=== PATIENT | male | born 1945 | race Hispanic/Latino ===

== ENCOUNTER 2017-05-10 06:05 | Day surgery (SDC) | payer MEDICARE, OTHER ==
--- NOTE | 2017-05-10 07:36 | Anesthesia Consultation ---
Anesthesia Consult and Med Hx Date of service: 05/10/17 - Airway Anesthetic Teeth Evaluation: Good ROM Head & Neck: Adequate Mental/Hyoid Distance: Adequate Mallampati Class: Class III Intubation Access Assessment: Possibly Difficult - Pre-Operative Health Status ASA Pre-Surgery Classification: ASA3 Proposed Anesthetic Plan: MAC - Pulmonary Hx Sleep Apnea: Yes - Cardiovascular System Hx Hypertension: Yes Hx Coronary Artery Disease: Yes (CABG x 3 2007, high cholestrerol) Hx Angina: No (h/o CHF) - Central Nervous System Hx Back Pain: Yes Hx Psychiatric Problems: Yes (depression) - Other Systems Hx Obesity: Yes (BMI 45.3, pre-bariatric surgery evaluation)
--- NOTE | 2017-05-10 07:37 | Anesthesia Day of Surgery ---
Anesthesia Day of Surgery - Day of Surgery Patient Examined: Yes Patient H&P Reviewed: Yes Patient is NPO: Yes Beta Blockers: Yes Cardiac Clearance: Yes
[2017-05-10] MEDS ORDERED: NACL 0.9% 1000 ML 1,000 ML IV SCH (08:00)
[2017-05-10] MEDS ORDERED: DIPRIVAN 10 MG/ML IV ONE (08:22)
[2017-05-10] MEDS ORDERED: WATER FOR IRRIG STERILE IR ONE (08:27)
--- NOTE | 2017-05-10 09:15 | Post Anesthesia Evaluation ---
- Post Anesthesia Evaluation Patient Participated: Yes Airway Patent: Yes Stable Respiratory Function: Yes Nausea/Vomiting: No Temp > 96.8F: Yes Pain Manageable: Yes Adequeate Hydration: Yes Anesthesia Complications: No
[2017-05-10 10:09] VITALS: BP 105/59
--- NOTE | 2017-05-11 01:18 | Operative Report ---
PREOPERATIVE DIAGNOSES: 1. Gastroesophageal reflux disease, dyspepsia, epigastric pain. 2. History of previously diagnosed hiatal hernia. POSTOPERATIVE DIAGNOSES: 1. Type 3 hiatal hernia. 2. Mild esophagitis 3. Gastroesophageal reflux disease. PROCEDURE IN DETAIL: The patient was placed in the dorsal supine position ____ satisfactory induction of MAC anesthesia, the patient was then placed in the left lateral decubitus position in preparation for undergoing the endoscopic esophagogastroendoscopy. Prior to induction, the patient's bite block was placed ____ the scope and then after adequate sedation, the scope was then passed down through the posterior oropharynx into the upper esophagus, mid esophagus and lower esophagus. Upon identifying the lower esophagus, the patient was noted to have a mild amount of esophagitis. The scope was then passed into the stomach. No abnormalities were seen on the way by antegrade to perform the mid body of the stomach and down to the antrum and into the pylorus. Scope was then retroflexed and upon retroflexion it was immediately noted that the patient had a large type 3 hiatal hernia. No other defects noted. The distal esophagus was within normal limits. Other than that ____ mild esophagitis. There was no evidence of any severe reflux disease. At the procedure was terminated, the endoscope was removed and the patient taken to recovery room in stable condition. JOB# [id number] RACHELLE/WHIT
== END 2017-05-10 06:06 | disposition home or self-care (01) ==
LOC: GIO 06:05
PROVIDERS: ATTEND Specialist
DX: K21.0 Gastro-esophageal reflux disease with esophagitis (principal); K44.9 Diaphragmatic hernia without obstruction or gangrene; F32.9 Major depressive disorder, single episode, unspecified; I25.10 Atherosclerotic heart disease of native coronary artery without angina pectoris; I11.0 Hypertensive heart disease with heart failure; E78.4 Other hyperlipidemia; I50.9 Heart failure, unspecified; F34.1 Dysthymic disorder; G47.30 Sleep apnea, unspecified; E66.01 Morbid (severe) obesity due to excess calories; Z68.42 Body mass index [BMI] 45.0-49.9, adult; Z98.890 Other specified postprocedural states; Z95.1 Presence of aortocoronary bypass graft; Z79.899 Other long term (current) drug therapy; Z91.041 Radiographic dye allergy status
CPT/HCPCS: 43235; J2704; J7030